=== PATIENT | male | born 1955 | race Caucasian/White ===

== ENCOUNTER 2016-07-27 15:32 | Emergency (ER) | payer BC ==
--- NOTE | 2016-08-16 15:15 | ER ---
ADMIT: 07/27/2016 RM/LOC: ER [facility] MR#: [id number] [id number] [place], [place] [address] [place] [id number] Emergency Room Report SEX: M AGE: 61 : 1955 DATE: 07/27/2016 ADDENDUM: This patient comes to the ER, was not feeling well. He has had chest pressure for the last 2 days and is very dizzy. He also mentions that he has difficulty urinating. On physical exam, his lungs are clear. Abdomen is soft. I cannot reproduce any pain in his chest. CBC and BMP was normal. Cardiac enzymes, EKG, and chest x-ray was also normal. Urinalysis did show urinary tract infection. I did consult with the ER physician. The patient was sent home with Cipro. He is to increase fluids and follow up with his primary as needed. Upon discharge, he had resolve of his chest pain. Please see my T-sheet. AIDEN Carmona / Juvenal Galaviz MD / jason JOB #: [id number] CC: Juvenal Galaviz MD, Attending Physician Ilene Pond MD, Family Physician
== END 2016-07-27 18:30 | disposition home or self-care (01) ==
LOC: ER 15:32
DX: N39.0 Urinary tract infection, site not specified (principal); Z87.891 Personal history of nicotine dependence; Z79.899 Other long term (current) drug therapy; Z90.89 Acquired absence of other organs; Z87.442 Personal history of urinary calculi